=== PATIENT | male | born 1950 | race Caucasian/White ===

== ENCOUNTER 2020-05-15 09:35 | Outpatient (CLI) | payer MEDICARE, OTHER, SELFPAY ==
--- NOTE | ~2020-05-15 | US_ITS ---
EXAMINATION:US venous doppler LE LT INDICATION:Left foot swelling and ankle surgery. TECHNIQUE: Multiple grayscale, color flow and Doppler images of the left lower extremity deep venous systems were obtained and reviewed. COMPARISON:No prior studies for comparison. FINDINGS: The common femoral, superficial femoral and popliteal veins demonstrate normal respiratory variation, augmentation and compressibility. Color flow is also seen within the posterior tibial, pe roneal, greater saphenous and profunda veins. IMPRESSION: 1: No lower extremity deep venous thrombosis. Reviewed, dictated and finalized at location A. DEPUTY
== END 2020-05-15 09:36 | disposition home or self-care (01) ==
PROVIDERS: PCP Family Medicine; Visit Provider Internal Medicine Cardiovascular Disease
DX: R60.0 Localized edema (principal)
CPT/HCPCS: 93971

== ENCOUNTER 2020-05-26 07:53 | Outpatient (CLI) | payer MEDICARE, OTHER, SELFPAY ==
--- NOTE | ~2020-05-26 | XR_ITS ---
EXAMINATION: XR cervical spine 4-5V EXAM DATE: 05/26/2020 08:23 INDICATION: M45.9 - Ankylosing spondylitis of unspecified sites in spine . TECHNIQUE: Cervical spine frontal, lateral, lateral swimmers, and open-mouth odontoid projections. C omparison is made to prior examination from 07/14/2018. FINDINGS: There is moderate loss of the C6-7 disc heights with 2 mm anterolisthesis. 2 mm anterolist hesis C4 on C5 as well. Mild to moderate loss of the C5-6 disc height, mild at the other cervical lev els. The odontoid process is intact. The lateral masses of C1 line up with C2. Overall moderate cerv ical arthropathy. Prevertebral soft tissue and pre-dens space are within normal limits. Bilateral car otid arterial sclerosis. No evidence of osseous fusion of the cervical spine. Mild interval progressi on spondylosis compared to 2019. IMPRESSION: 1. Moderate cervical spondylosis. 2. Bilateral carotid arteriosclerosis. Reviewed, dictated and finalized at location B. LE SORTER
--- NOTE | ~2020-05-26 | XR_ITS ---
EXAMINATION: XR sacroiliac joints min 3V EXAM DATE: 05/26/2020 08:23 INDICATION: M45.9 - Ankylosing spondylitis of unspecified sites in spine TECHNIQUE: Frontal, bilateral oblique projections of the sacroiliac joints. Correlation is made to p elvic x-ray 10/25/2018. FINDINGS: Again there is some asymmetric sacroiliac joint sclerosis inferiorly more on the left side . No evidence of sacroiliac joint fusion. There is mild to moderate bilateral hip primary osteoarthri tis. Mild to moderate lower lumbar spondylosis. There are arterial calcifications, arteriosclerosis. There is no significant interval change. IMPRESSION: Nonspecific sacroiliitis unchanged, could be osteoarthritis or inflammatory arthritis. Reviewed, dictated and finalized at location B. RSONATOR CHARACTER IMPRESSION: Nonspecific sacroiliitis unchanged, could be osteoarthritis or inf lammatory arthritis.
--- NOTE | ~2020-05-26 | XR_ITS ---
EXAMINATION: NM bone scan limited area, XR foot LT min 3V DATE: 05/26/2020 11:28 INDICATION: Left foot pain post fall 10 weeks prior. TECHNIQUE: 1. 23.4 mCi Tc-99m HDP was administered intravenously. Delayed scintigrams of the bilateral lower le gs, ankles and feet were obtained. 2. Dorsal plantar, lateral and 2 oblique views of the left foot were obtained. COMPARISON: None FINDINGS: Bone scan: There is increased uptake at the head of the third metatarsal and to lesser degree at the heads of th e second and fourth metatarsals and minimally at the heads of the first and fifth metatarsals. Additi onal regions of increased uptake in the region of the navicula and mid cuneiform. Increased joint carissa tered uptake at the left knee with medial compartment predominance. More linear band of increased upt kailee at the medial tibial plateau which may be related to reported history of prior fracture with seco ndary osteoarthritis. Left foot radiographs: Bone alignment is normal. No evident fractures. Sclerotic bone island without evident associated incr eased uptake at the proximal diaphysis of the left third metatarsal. Mild polyarticular osteoarthriti s at the fused the tarsometatarsal, metatarsophalangeal and interphalangeal joints. Nonspecific osteo penia at the heads of the second and third metatarsals with no definitive cortical erosion. IMPRESSION: 1. Nonspecific increased uptake at the heads of several of the metatarsal most prominent at the third metatarsal and at the navicula and mid cuneiform. Aside from relative osteopenia at the heads of the second-fourth metatarsals which along with increased uptake could be related to hyperemia with no ot her definitive correlate or etiology evident on the plain radiographs. Differential would include str ess reaction or occult stress fracture or potentially complex regional pain syndrome related to prior trauma with reported fracture of the the proximal tibia. If clinically indicated could consider furt her evaluation with MRI. Reviewed, dictated and finalized at location A. OR SOFTWARE ANALYST IMPRESSION: 1. Nonspecific increased uptake at the heads of several of the metatarsal most prominent at the third metatarsal and at the navicula and mid cuneiform. Aside from relative osteopenia at the heads of the second-fourth metatarsals which al rafaela with increased uptake could be related to hyperemia with no other definitiv e correlate or etiology evident on the plain radiographs. Differential would in clude stress reaction or occult stress fracture or potentially complex regional pain syndrome related to prior trauma with reported fracture of the the proxim al tibia. If clinically indicated could consider further evaluation with MRI.
== END 2020-05-26 07:54 | disposition home or self-care (01) ==
PROVIDERS: PCP Family Medicine; Referring Provider Internal Medicine; Visit Provider Orthopaedic Surgery
DX: M45.9 Ankylosing spondylitis of unspecified sites in spine (principal); M79.672 Pain in left foot; M47.892 Other spondylosis, cervical region; I65.23 Occlusion and stenosis of bilateral carotid arteries
CPT/HCPCS: 72050; 72202; 73630; 78300; A9561